=== PATIENT | male | born 1945 ===

== ENCOUNTER 2017-05-19 14:26 | Emergency (ER) | payer MEDICARE ==
[2017-05-19 14:35] VITALS: TEMP 97.5
--- NOTE | 2017-05-19 16:21 | C.PDOC ---
History Of Present Illness 71 year old male presents to the ED for evaluation of left-sided lower back pain that radiates down left leg for the past 2 weeks. Patient recalls lifting some heavy wood two weeks ago; the wood slipped and patient "pulled" his back during the process. He notes symptoms are worse with movement. Patient tried applying icy hot patch to the area without relief. Patient denies fever, chills , abdominal pain, urinary/bladder incontinence, extremity numbness/weakness, saddles anesthesia, falls, or direct trauma/injury to the affected site. Time Seen by Provider: 05/19/17 15:00 Chief Complaint (Nursing): Back Pain History Per: Patient History/Exam Limitations: no limitations Onset/Duration Of Symptoms: Other (2 weeks ) Current Symptoms Are (Timing): Still Present Quality Of Discomfort: "Pain" Previous Symptoms: Back Pain. denies: Prior Injury Associated Symptoms: denies: Incontinence, New Weakness, New Numbness Exacerbating Factor(s): Movement Additional History Per: Patient Past Medical History Reviewed: Historical Data, Nursing Documentation, Vital Signs Vital Signs: Last Vital Signs Temp 97.5 F L 05/19/17 14:35 Pulse 72 05/19/17 16:32 Resp 17 05/19/17 16:32 BP 140/75 05/19/17 16:32 Pulse Ox 100 05/19/17 17:29 - Medical History PMH: No Chronic Diseases Surgical History: No Surg Hx Family History: States: Unknown Family Hx - Social History Hx Tobacco Use: No Hx Alcohol Use: No Hx Substance Use: No - Immunization History Hx Tetanus Toxoid Vaccination: Yes Hx Influenza Vaccination: No Hx Pneumococcal Vaccination: Yes Review Of Systems Constitutional: Negative for: Fever, Chills Gastrointestinal: Negative for: Abdominal Pain Genitourinary: Negative for: Incontinence Musculoskeletal: Positive for: Back Pain (left-sided, lower ), Leg Pain (left ) Neurological: Negative for: Weakness, Numbness, Other (saddle anesthesia ) Physical Exam - Physical Exam Appears: Non-toxic, No Acute Distress Skin: Normal Color, Warm, Dry Eye(s): bilateral: Normal Inspection Neck: Supple Chest: Symmetrical, No Deformity Cardiovascular: Rhythm Regular, No Murmur Respiratory: Normal Breath Sounds, No Rales, No Rhonchi, No Wheezing Back: Paraspinal Tenderness (lumbar ), Straight Leg Raising (45 degrees ) Extremity: Normal ROM, No Tenderness, Capillary Refill (less than 2 seconds ), No Deformity, No Swelling Neurological/Psych: Oriented x3, Normal Speech, Normal Cognition, Normal Motor, Normal Sensation Gait: Steady ED Course And Treatment O2 Sat by Pulse Oximetry: 100 (on RA) Pulse Ox Interpretation: Normal - Other Rad Lumbar Spine XR X-Ray: Interpreted by Me, Viewed By Me, Read By Radiologist Interpretation: PROCEDURE: Radiographs of the Lumbar Spine. HISTORY: Low back pain. COMPARISON: No prior. FINDINGS: BONES: There is normal alignment of the lumbar vertebral bodies. Lumbar lordosis is maintained. There is diffuse bone demineralization. There is no acute fracture, spondylolysis or spondylolisthesis. There is an age indeterminate mild superior endplate compression deformity in the T12 vertebral body. DISC SPACES : There is mild degenerative disc disease in the lower lumbar spine with anterior spurring, mild reduced disc heights and multilevel facet arthropathy. OTHER FINDINGS: There are multiple phleboliths in the pelvis with. IMPRESSION : Mild multilevel degenerative disc disease in the lower lumbar spine. Age indeterminate superior endplate compression deformity in the T12 vertebral body. No acute fracture in the lumbar vertebral bodies. Medical Decision Making Medical Decision Making: LS Spine AP/LAT ordered and reviewed. Patient received Toradol IM and Flexeril PO. On re-exam, the patient reports improvement of symptoms. Ambulatory in the ED with steady gait. Lungs are CTA, heart is RRR, Abdomen is soft, non-tender and tolerating PO well. Follow up with the medical doctor within 1-2 days. Return if worsened. Disposition - Disposition Referrals: Sheldon Bee MD [Staff Provider] - Disposition: HOME/ ROUTINE Disposition Time: 16:19 Condition: GOOD Additional Instructions: Follow up with the medical doctor within 1-2 days. Return if worsened. Prescriptions: Cyclobenzaprine [Cyclobenzaprine HCl] 10 mg PO BID #14 tab Naproxen [Naprosyn] 500 mg PO BID #20 tab Instructions: Sciatica (ED), Back Exercises (ED) Forms: [facility] (Romanian) - Clinical Impression Clinical Impression: Low back strain, Sciatica - PA / [employer] / Resident Statement MD/DO has reviewed & agrees with the documentation as recorded. - Scribe Statement The provider has reviewed the documentation as recorded by the Scribe (Nataliya Schultz) All medical record entries made by the Scribe were at my direction and personally dictated by me. I have reviewed the chart and agree that the record accurately reflects my personal performance of the history, physical exam, medical decision making, and the department course for this patient. I have also personally directed, reviewed, and agree with the discharge instructions and disposition.
--- NOTE | 2017-05-19 16:21 | RAD ---
PROCEDURE: Radiographs of the Lumbar Spine. HISTORY: Low back pain COMPARISON: No prior. FINDINGS: BONES: There is normal alignment of the lumbar vertebral bodies. Lumbar lordosis is maintained. There is diffuse bone demineralization. There is no acute fracture, spondylolysis or spondylolisthesis. There is an age indeterminate mild superior endplate compression deformity in the T12 vertebral body. DISC SPACES: There is mild degenerative disc disease in the lower lumbar spine with anterior spurring, mild reduced disc heights and multilevel facet arthropathy. OTHER FINDINGS: There are multiple phleboliths in the pelvis with IMPRESSION: Mild multilevel degenerative disc disease in the lower lumbar spine. Age indeterminate superior endplate compression deformity in the T12 vertebral body. No acute fracture in the lumbar vertebral bodies.
[2017-05-19 16:33] VITALS: BP 140/75; PULSE 72; RESP 17
[2017-05-19 17:23] VITALS: O2SAT 100
== END 2017-05-19 16:33 | disposition home or self-care (01) ==
LOC: C.ER 14:26
DX: S39.012A Strain of muscle, fascia and tendon of lower back, initial encounter (principal); X50.0XXA Overexertion from strenuous movement or load, initial encounter; M54.32 Sciatica, left side
CPT/HCPCS: 72100; 96372; 99283; J1885

== ENCOUNTER 2018-07-21 08:48 | Emergency (ER) | payer MEDICARE ==
[2018-07-21 08:59] VITALS: BP 132/81; PULSE 72; RESP 19; TEMP 97.6; O2SAT 99
[2018-07-21] MEDS ORDERED: Lidocaine 5% Patch TD STA (09:14)
[2018-07-21] MEDS ORDERED: Lidocaine 5% Patch TD ONE (09:20)
--- NOTE | 2018-07-21 10:23 | C.PDOC ---
History Of Present Illness 72 y/o male,w/PMhx of sciatica , BPH, and hypercholesterolemia, presents to the ER complaining of left sided lower back pain which has been present for the past 2 weeks. Patient states that the pain radiates to the left buttock and sometimes to the right buttock. Patient reports that he has undergone physical therapy for the pain.Patient reports that he has been evaluated for similar symptoms in [facility] and he was treated with an injection.Denies having dysuria and hematuria. Time Seen by Provider: 07/21/18 09:09 Chief Complaint (Nursing): Back Pain History Per: Patient History/Exam Limitations: no limitations Onset/Duration Of Symptoms: Days Current Symptoms Are (Timing): Still Present Severity: Moderate Previous Symptoms: Back Pain Associated Symptoms: None Past Medical History Reviewed: Historical Data, Nursing Documentation, Vital Signs Vital Signs: Last Vital Signs Temp 97.6 F 07/21/18 08:55 Pulse 72 07/21/18 08:55 Resp 19 07/21/18 08:55 BP 132/81 07/21/18 08:55 Pulse Ox 99 07/21/18 08:55 - Medical History PMH: Hypercholesterolemia Other Surgeries: Hx of surgeries Family History: States: No Known Family Hx - Social History Hx Tobacco Use: No Hx Alcohol Use: No Hx Substance Use: No - Immunization History Hx Tetanus Toxoid Vaccination: No Hx Influenza Vaccination: Yes Hx Pneumococcal Vaccination: Yes Review Of Systems Except As Marked, All Systems Reviewed And Found Negative. Constitutional: Negative for: Fever, Chills Musculoskeletal: Positive for: Back Pain Neurological: Negative for: Weakness, Numbness Physical Exam - Physical Exam Appears: Non-toxic, No Acute Distress Skin: Normal Color, Warm, Dry Head: Atraumatic, Normacephalic Eye(s): bilateral: Normal Inspection Nose: Normal Oral Mucosa: Moist Neck: Supple Chest: Symmetrical Cardiovascular: Rhythm Regular Respiratory: Normal Breath Sounds, No Rales, No Rhonchi, No Wheezing Gastrointestinal/Abdominal: Normal Exam, Soft, No Tenderness, No Guarding, No Rebound Back: Normal Inspection, No Vertebral Tenderness Neurological/Psych: Oriented x3, Normal Speech ED Course And Treatment O2 Sat by Pulse Oximetry: 99 (RA) Pulse Ox Interpretation: Normal Medical Decision Making Medical Decision Making: Plan: --Tylenol PO --Lidoderm Patch Updates: On re-evaluation, patient states that he feels better. Patient has been discharged and instructed to follow up with PMD. Disposition Counseled Patient/Family Regarding: Diagnosis, Need For Followup, Rx Given - Disposition Referrals: Tesfaye Bee MD [Staff Provider] - Disposition: HOME/ ROUTINE Disposition Time: 10:21 Condition: STABLE Prescriptions: Cyclobenzaprine [Cyclobenzaprine HCl] 10 mg PO TID #12 tab Ibuprofen [Motrin] 600 mg PO TID #15 tab Instructions: Sciatica (DC) Forms: [facility] (Armenian), Gen Discharge Inst Armenian - POA Present On Arrival: None - Clinical Impression Clinical Impression: Low back pain, Sciatica - Scribe Statement The provider has reviewed the documentation as recorded by the Vianca Olivares Provider Attestation: All medical record entries made by the Vianca were at my direction and personally dictated by me. I have reviewed the chart and agree that the record accurately reflects my personal performance of the history, physical exam, medical decision making, and the department course for this patient. I have also personally directed, reviewed, and agree with the discharge instructions and disposition.
== END 2018-07-21 10:35 | disposition home or self-care (01) ==
LOC: C.ER 08:48
DX: M54.42 Lumbago with sciatica, left side (principal)